=== PATIENT | female | born 1985 | race Caucasian/White ===

== ENCOUNTER 2025-05-15 14:53 | Emergency (ER) | payer BC, SELFPAY ==
[2025-05-15 15:02] VITALS: BP 142/90; PULSE 82; RESP 16; TEMP 36.3; O2SAT 100; BMI 42.1
--- NOTE | 2025-05-15 15:58 | ED_ITS ---
HPI - General Adult General Chief complaint: Eye Problems Stated complaint: Loss of vision about ten min ago Time Seen by Provider: 05/15/25 15:26 History of Present Illness HPI narrative: Patient was in the car when she experienced vision changes , a bright ripple effect, then everything was hazy and dark. Episode lasted 20 minutes. Denies weakness, dizziness, n/v, etc. Notes she had a headache yesterday, but was able to treat with advil. No history of similar episodes. Last eye exam 1 year ago, no concerns. Wears glasses regularly. Vision normal at this time. 39-year-old woman presenting to the emergency department concern of changes to vision. Was driving in the car to will markedly when suddenly onset of some says right now is sparkling of vision in the right eye clearly we venous that was present even with her by closed. Does not occur in the left eye. Shortly after this though that seemed to resolve and then in both eyes experienced a general darkening of vision. Duration entirety lasted about 20 minutes. Not associated with headache otherwise. She does have a history of headaches but no diagnosis of migraine. Do not have any focal weakness otherwise. No chest pain shortness of breath. No palpitation. Did have a headache some yesterday v itreous with Advil. This is not similar to prior episodes. Last eye exam was about a year ago and was unconcerning. No palpitations. Related Data Home Medications ?Medication ?Instructions ?Recorded ?Confirmed No Known Home Medications 05/15/25 07/0 12/09 Allergies Allergy/AdvReac Type Severity Reaction Status Date / Time hydrocodone AdvReac Intermediate Vomiting Verified 05/15/25 15:02 Review of Systems Status of ROS: Reports: 6 or more systems reviewed and unremarkable except as noted in History and below [facility] Social History Smoking Status: Never smoker How often do you have a drink containing alcohol: never AUDIT-C Alcohol total score: 0 Non-prescribed substance use: denies use Exam 2 Narrative: Exam Narrative: Very pleasant. NAD. Bespectacled. Breathing easily. Speaking fluidly. Head looks atraumatic. Neck is supple. Cranial nerves 2-12 are intact. Pupils are 3 mm brisk and equal. Funduscopic exam looks WNL. Anterior chamber looks clear. Extraocular movements are full. Moving all extremities without difficulty. No edema evident. Const: Vital Signs, click to edit/add: Vital Signs - 24 hr 05/15/25 15:02 Temperature 97.4 F L Pulse Rate [Pulse Oximeter] 82 Respiratory Rate 16 Blood Pressure [Ri ght Upper Arm] 142/90 H Pulse Oximetry 100 Oxygen Delivery Me thod Room Air Documenting provider has reviewed patient's vital signs: yes Course Vital Signs Vital signs: Initial Vital Signs Temperature 97.4 F L 05/15/25 15:02 Temperature Source Temporal Artery Scan 05/15/25 15:02 Pulse Rate 82 05/15/25 15:02 Respiratory Rate 16 05/15/25 15:02 Blood Pressure 142/90 H 05/15/25 15:02 Blood Pressure Mean 107 H 05/15/25 15:02 Blood Pressure Position Sitting 05/15/25 15:02 Pulse Oximetry 100 05/15/25 15:02 Oxygen Delivery Method Room Air 05/15/25 15:02 Vital Signs Temperature 97.4 F L 05/15/25 15:02 Pulse Rate 82 05/15/25 15:02 Respiratory Rate 16 05/15/25 15:02 Blood Pressure 142/90 H 05/15/25 15:02 Pulse Oximetry 100 05/15/25 15:02 Oxygen Delivery Method Room Air 05/15/25 15:02 Temperature 97.4 F L 05/15/25 15:02 Pulse Rate 82 05/15/25 15:02 Respiratory Rate 16 05/15/25 15:02 Blood Pressure 142/90 H 05/15/25 15:02 Pulse Oximetry 100 05/15/25 15:02 Oxygen Delivery Method Room Air 05/15/25 15:02 Medical Decision Making MDM Narrative Medical decision making narrative: Does not feel it she needs any intervention for discomfort or nausea. I think what she is experiencing here is likely scintillating scotoma and a migrainous headache. More concerning I think is the bilateral darkening of vision. Not occurred inning of vision in the same way might expect from a retinal issue/detachment. I think less likely is it to be a cerebrovascular event. I did discuss this case with Stroke Neuro on-call. 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 No further workup required at this time. Discussed with Mary. Offered reassurance at this point. See patient discharge plan for further discussion Continue to hydrate reasonably. Be seen for severe and/or persistent headache, new and focal weakness, associated irregular heartbeats. Did manage to discuss again with Stroke Neuro and it sounds like they also think that the double vision that you have occasionally at a distance is most likely a separate visual thing. Would follow up for recheck in eye clinic. Discharge Plan Discharge Clinical Impression: Ophthalmoplegic migraine, Scintillating scotoma of right eye Patient Disposition: Home, Self-Care Condition: Improved Additional Instructions: Continue to hydrate reasonably. Be seen for severe and/or persistent headache, new and focal weakness, associated irregular heartbeats. Did manage to discuss again with Stroke Neuro and it sounds like they also think that the double vision that you have occasionally at a distance is most likely a separate visual thing. Would follow up for recheck in eye clinic. Prescriptions: No Action No Known Home Medications Stand Alone Forms: [employer] Info Instructions
--- OUTSIDE RECORDS SUMMARY | 2025-05-15 17:08 | XMS_ITS | Clinical Summary ---
Author Organization [facility] Address [address] [place] [id number] Care Team Providers Care Professor Of Rhetoric Name Role Phone Karrie, Dr Michael Unavailable Clinic, [facility] Primary Care Prov ider Allergies Active Allergy Reactions Criticality Noted Date Comments Codeine GI Upset 11/19/2022 Medications cholecalciferol (VITAMIN D-3) 2,000 unit capsule Take 1 capsule by mouth once daily. 0 09/23/2020 Active Active Problems Problem Noted Date Diagnosed Date Abdominal pain, LUQ (left upper quadrant) 2016 Overview (07/28/2017): 07/28/2017 renal vs constipation. obtain abdominal ultrasound. miralax at home. Assessment & Plan (07/28/2017 2:41 PM CDT): Mary complains of left upper quadrant abdominal pain / CVA pain. Onset/Timing: months / sudden, intermittent, unchanged Pain Quantity/Quality/radiation: dull, severe and interupting sleep. No radiation. Alleviating Factors: antibiotics improved symptoms, counter pressure. Aggravating Factors: palpation, laying on left side. Treatment: none specifically for this, treatment for UTI or pyelonephritis seem to help. Associated symptoms: no fever, chills, sweats, night sweats, change in weight. The patient has a history of UTI and pyelonephritis. Arthralgia 07/28/2017 Overview (11/09/2017): 11/04/17: Assessment / Plan: 1) Positive HLA b 27, chest wall pain. The pain is reproducible. Her clinical symptoms are not clinically consistent with an inflammatory pain. Does not meet clinical criteria for a spondyloarthropathy. Discussed that the HLA B 27 test is a non specific marker. She is not 5 weeks . T/C CT ribs after she gives . ICD-10-CM 1. Arthralgia, unspecified joint M25.50 AMB CONSULT TO RHEUMATOLOGY 2. Myalgia M79.1 AMB CONSULT TO RHEUMATOLOGY Follow up Prn Thank you for the referral. Vicente Nunez MD .................... 11/04/2017 9:07 AM Myalgia 07/28/2017 Atypical chest pain 09/03/2015 Overview (07/28/2017): Previous Studies: 2014 negative stress echo and cardiology consult at [place]. 07/28/2017 Orders Placed This Encounter SIVAKUMAR TEST RA QUANTITATIVE URIC ACID HLA B27 CBC AND DIFFERENTIAL CYCLIC CITRULLINE PEPTIDE LUPUS ANTICOAGULANT SEDIMENTATION RATE C-REACTIVE PROTEIN AMB CONSULT TO RHEUMATOLOGY Assessment & Plan (07/28/2017 2:41 PM CDT): Mary complains of chest wall pain. Mostly bilateral Along sternum. Onset/Timing: years / waxing and waning Pain Quantity/Quality/radiation: tender. Alleviating Factors: ibuprofen, being active does help overall. Aggravating Factors: palpation, lifting 4 year old daughter Treatment: ibuprofen Associated symptoms: every morning her whole body hurts. This resolves in first 10 minutes after rising. Previously seen by providers at [place] (reviewed in care everywhere). Stress echo completed and follow up with cardiology complete - thought to be other than cardiac in origin. She has not seen Rheumatology and appears Rheumatologic testing has not been completed. Was told she might have some kind of arthritis. She is concerned because these are symptoms similar to her father who had multiple sclerosis. 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 Menses: Patient's last menstrual period was 07/08/2017. Menstrual Regularity: regular, every 28-30 days Flow: normal lasting 5 days No intermenstrual bleeding, spotting, or discharge. Dysmenorrhea : none. Cyclic symptoms include none. Current contraception: condoms History of abnormal Pap smear: Yes History of abnormal mammogram: n/a Family history of breast cancer: No Family history of uterine or ovarian cancer: No Regular self breast exam: no Regular self skin checks: no Changing moles/lesions? No Diet:regular Calcium Intake: Adequate dietary intake Exercise: moderate regular exercise program Dentist twice per year: no Vision exam in last two years: yes STD concerns: No New Partner in last 90 days? No Polyhydramnios 03/22/2013 07/28/2017 Overview (07/28/2017): Overview: Problem list name updated by automated process. Provider to review and confirm Im[employer] Update utility Edema in 03/19/2013 7 Immunizations Immunization Administration Dates Next Due Human Papilloma Virus Vaccine 01/14/2009, 009,11/05/2008,11/05/2008 Influenza, IIV4 09/22/2022,09/30/2018 Td (Age >=7 Years) 10/02/2005 Family History Medical History Relation Name Comments Multiple sclerosis Father Arthritis Maternal Aunt Hyperlipidemia Mother Arthritis Paternal Aunt Diabetes Paternal Grandfather Heart Disease Paternal Grandfather Arthritis Paternal Grandmother Diabetes Paternal Grandmother Good Health Sister Relation Name Status Comments Father Maternal Aunt Maternal Grandfather Maternal Grandmother Mother Alive Paternal Aunt Paternal Grandfather Paternal Grandmother Sister Alive Social History Tobacco Use Types Packs/Day Years Used Date Smoking Tobacco: Never Smokeless Tobacco: Never Alcohol Use Standard Drinks/Week Comments Yes 0 (1 standard drink = 0.6 oz pur e alcohol) rare PHQ-2 Answer Date Recorded PHQ-2 TOTAL SCORE 0 11/19/2022 Social Connections Answer Date Recorded Frequency of Communication with Friends and Fami ly Not on file 11/15/2021 Financial Resource Strain Answer Date R ecorded Difficulty of Paying Living Expenses Not on file 11/15/2021 Difficulty of Paying Living Expenses Not on file 11/15/2021 Comments No Sex and Gender Information Value Date Recorded Sex Assigned at Not on file Legal 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 Gender Identity Not on file Sexual Orientation Not on file 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 Not on file Not on file Not on fi le Obstetrics History Para Term AB IAB SAB Ectopic Multiple Livin g Live Births 2 2 2 0 0 0 0 0 0 2 2 Date Outcome GA Total Labor Labor/2nd/3rd Weight Sex Type Anes PTL Brianna A1 A5 Name Clin 2012 Term 40w 0d 4.14 kg (9 lb 2 oz) F Vag Epidur al N Livin g Fabiola Complications:None,PIH (preg angel induced hypertension) () Delivery Location:[place], [place] Comments:Modified bedr est x 3 months 2017 Term 40w 0d F Vag Epidur al N Livin g Emily Delivery Location:[facility] Comments:Retained plac enta required manual evacuation and then D&C for retained products a few days later Last Filed Vital Signs Vital Sign Reading Time Taken Comments Blood Pressure 118/78 09/01/2021 2:27 PM CDT Pulse 72 09/01/2021 2:27 PM CDT Temperature 36.9 C (98.4 F) 04/10/2021 1:38 PM CDT Respiratory Rate 12 07/06/2018 4:11 AM CDT Oxygen Saturation 100% 04/10/2021 1:38 PM CDT Inhaled Oxygen Concentration - - Weight 108.8 kg (239 lb 14.4 oz) 09/01/2021 2:27 PM CDT Height 160 cm (5' 3) 09/01/2021 2:27 PM CDT Body Mass Index 42.5 09/01/2021 2:27 PM CDT Plan of Treatment Health Maintenance Due Date Last Done Comments (IA) Tdap 1996 HIV for age 15-65 2000 Hepatitis C screening for age 18-79 2003 Hepatitis B series for 19+ (1 of 3 - 19+ 3-dose series) 2004 Tetanus booster 10/02/2015 10/02/2005 Pap test for age 21-65 07/28/2022 07/28/2017, 2016 BMI (ht and wt on same day) for age 18+ 09/01/2022 09/01/2021, 09/01/2019, 05/03/2019, Additional history exists Depression screening for age 12+ 11/19/2023 11/19/2022, 09/01/2021, 09/01/2019, Additional history exists COVID-19 vaccine series ( season) 2024 08/03/2021, 05/11/2021 Influenza Vaccine (Season Ended) 2025 09/22/2022, 09/30/2018 Pneumococcal series for age 6-49 Aged Out No longer eligible based on patient's age to complete this topic Procedures Procedure Name Priority Date/Time Associated Diagnosis Comments COMPLIANCE CONSULTANT THIN PREP PAP SCREEN IMAGED Routine 07/28/2017 10:33 AM CDT Pap smear for cervical cancer screening from Last 3 Months or Most Recently Relevant to Health Maintenance Results * COMPLIANCE CONSULTANT THIN PREP PAP SCREEN IMAGED (07/28/2017 10:33 AM CDT) Case Report Gynecologic Cytology Report Case: [id number] Authorizing Provider: Taryn Zurita, Collected: 07/28/2017 1033 PA Ordering Location: [facility] Received: 07/28/2017 1033 [facility] First Screen: Vini Nunez Specimen: COMPLIANCE CONSULTANT ThinPrep Vial Screening, Cervical 08/04/2017 12:26 PM CDT [facility] INTERPRETATION/ RESULT NEGATIVE FOR INTRAEPITHELIAL LESION OR MALIGNANCY (NIL) (none) 08/04/2017 12:26 PM CDT [facility] at 1226 CDT SPECIMEN ADEQUACY Satisfactory for evaluation Endocervical component present 08/04/2017 12:26 PM CDT [facility] HPV REQUEST HPV if ASCUS 08/04/2017 12:26 PM CDT [facility] Date of LMP 07/08/17 08/04/2017 12:26 PM CDT [facility] Last Pap Date 201408/04/2017 12:26 PM CDT [facility] Last Pap Result NIL 7 12:26 PM CDT [facility] Abnormal Pap or [place] Bx in last 5 years No 08/04/2017 12:26 PM CDT [facility] Menstrual Status Regular Periods 08/04/2017 12:26 PM CDT [facility] [place] Bx Done Today No 08/04/2017 12:26 PM CDT [facility] Additional Information None given 08/04/2017 12:26 PM CDT [facility] Automated Review Successful 08/04/2017 12:26 PM CDT [facility] Comment:Specimen processed s uccessfully by automated x ray technologist device, ThinPrep Imaging System, [employer] Note The pap test is a screening technique, not a diagnostic procedure. It is used primarily to screen for squamous cancers and precursor lesions. Published studies have shown that it is subject to both false negative and false positive results. The pap test should not be used as the sole means to diagnose or exclude pre-malignant and malignant lesions. Interpreted at [facility] ([facility], [facility], [facility], [facility], [facility], [facility], [facility]) 08/04/2017 12:26 PM CDT [facility] Other (Cervical) 07/28/2017 10:33 AM CDT 07/28/2017 10:33 AM CDT us Taryn SHEETS PATHOLOGY/CYTOLOGY F inal Result [facility] [address] [place] [address], from Last 3 Months or Most Recently Relevant to Health Maintenance [place] [address] [place] [address] [address] [facility] [place] [address] Care Teams Professor Of Rhetoric Relationship Specialty Start Date End Date Clinic, [facility] [address] [place] [address] PCP - General 04/10/21 None, Dr Hoang De Jesus Physician Specialty 04/13/14
--- OUTSIDE RECORDS SUMMARY | 2025-05-15 17:08 | XMS_ITS | Clinical Summary ---
Author Organization [facility] Address [address], [place] [address] Care Team Providers Care Education Associate Name Role Phone Unavailable Primary Care Provider Unavailabl e Source Comments You are receiving this document as you are listed as the primary care provider,follow-up provider, or the patient has been referred to you for consultation.This is in compliance with the Medicare andMedicaid EHR Incentive Program,which states Providers who transition their patient to another setting of careor provider of care or refers their patient to another provider of care shouldprovide summary care record for each transition of care or referral. [employer] Allergies Active Allergy Reactions Criticality Noted Date Comments Codeine Gastrointestinal 01/11/2025 Medications No known medications Active Problems No known active problems Social History Tobacco Use Types Packs/Day Years Used Date Smoking Tobacco: Never Smokeless Tobacco: Never Tobacco Cessation:Counseling Given: Not Answered Comments No Sex and Gender Information Value Date Recorded Sex Assigned at Not on file Legal Sex Female 8:34 AM CDT Gender Identity Not on file Sexual Orientation Not on file Last Filed Vital Signs Vital Sign Reading Time Taken Comments Blood Pressure 141/90 01/11/2025 12:58 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 Pulse 97 01/11/2025 12:58 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 Temperature 36.8 C (98.3 F) 01/11/2025 12:58 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 Respiratory Rate 16 01/11/2025 12:58 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 Oxygen Saturation 99% 01/11/2025 12:58 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 Inhaled Oxygen Concentration - - Weight - - Height - - Body Mass Index - - Plan of Treatment Health Maintenance Due Date Last Done Comments Cervical Cancer Screening Due 1985 Hep C Screening (Preventive Services) 1985 HIV Screening (Preventive Services) 2001 Adult Preventive Visit 2003 HepB Vaccine (1) 2004 HPV Vaccine (3 - 3-dose series) 05/06/2009 01/14/2009, 11/05/2008 COVID-19 Vaccine (3 - 2023-2 5 season) 2024 08/03/2021, 05/11/2021 Influenza Vaccine (Season Ended) 2025 09/22/2022, 09/30/2018 DTaP/Tdap/Td Vaccine (2 - Tdap) 12/28/2033 12/28/2023 Zoster/Shingles Vaccine (1 o f 2) 2035 HepA Vaccine Aged Out No longer eligi ble based on patient's age to complete this topic Hib Vaccine Aged Out No longer eligi ble based on patient's age to complete this topic IPV (Polio) Vaccine Aged Out No longe r eligible based on patient's age to complete this topic MCV4 Vaccine Aged Out No longer eligi ble based on patient's age to complete this topic Meningococcal B Vaccine Aged Out No l onger eligible based on patient's age to complete this topic Pneumococcal Vaccine Aged Out No long er eligible based on patient's age to complete this topic Insurance [facility] BLUE LINK
== END 2025-05-15 17:15 | disposition home or self-care (01) ==
PROVIDERS: Emergency Provider Family Medicine
DX: H53.121 Transient visual loss, right eye (principal); G43.B0 Ophthalmoplegic migraine, not intractable
CPT/HCPCS: 99284